=== PATIENT | male | born 1955 | race Caucasian/White ===

== ENCOUNTER 2024-02-04 18:53 | Emergency (ER) | payer MEDICARE, BC, SELFPAY ==
[2024-02-04] VITALS (11 sets, daily range): BP systolic 112–150; BP diastolic 74–83; PULSE 58–97; RESP 14–18; TEMP 36.8; O2SAT 91–98; BMI 23.1
--- NOTE | 2024-02-04 19:33 | ED.NAVMDI ---
HPI - Nausea/Vomiting/Diarrhea General Time Seen by Provider: 19:33 Date Seen: 02/04/24 Chief complaint: Nausea/Vomiting Stated complaint: Nausea, vomiting Time Seen by Provider: 02/04/24 19:32 Source: patient and RN notes reviewed Mode of arrival: ambulatory Limitations: no limitations History of Present Illness HPI Narrative: Joann is a very pleasant 68-year-old male with history of hypertension and hyperlipidemia as well as frequent heartburn on pantoprazole who comes to the emergency room with nausea vomiting and diarrhea. Patient notes that he had actually been feeling unwell 4 days ago and this lasted for 3 days. However yesterday he had complete resolution of his symptoms and was feeling quite well. Today at noon he had the onset of nausea vomiting and diarrhea all nonbloody in nature. He has not had cough cold congestion. Denies dysuria hematuria. He notes the abdominal pain appears to be in the center of his abdomen. He states that he has a lot of problems with stomach acid and he thinks that that may be part of this. He is requesting something for pain. Movement is not tented changes discomfort although he is wanting to stay still. He has not taken anything for pain at this time. Associated nausea: Yes Related Data Home Medications ?Medication ?Instructions ?Recorded ?Confirmed amlodipine 5 mg tablet 5 mg PO DAILY 02/04/24 02/04/24 atorvastatin 40 mg tablet 40 mg PO DAILY 02/04/24 02/04/24 celecoxib 200 mg capsule mg PO 02/04/24 pantoprazole 40 mg tablet,delayed 40 mg PO DAILY 02/04/24 02/04/24 release Allergies Allergy/AdvReac Type Severity Reaction Status Date / Time Penicillins Allergy Unknown Verified 02/04/24 22:25 Review of Systems Status of ROS: Reports: 10 or more systems reviewed and unremarkable except as noted in History and below Const: Denies: fever or chills Eyes: Denies: change in vision ENMT: Denies: throat pain, neck pain, nasal discharge or nasal congestion Cardio: Denies: chest pain, palpitations or shortness of breath with exertion Resp: Denies: shortness of breath or cough GI: Reports: abdominal pain, nausea, vomiting and diarrhea; Denies: blood in stool : Denies: painful urination or urinary frequency Musculo: Denies: neck pain PFSH PFSH Social History Smoking Status: Former smoker What tobacco products do you use: cigarettes Smoking quit date/years: <= 15 years ago How often do you have a drink containing alcohol: never AUDIT-C Alcohol total score: 0 Non-prescribed substance use: denies use Exam Narrative: Exam Narrative: Alert and oriented. Very stoic but in obvious discomfort. Ears eyes nose clear. Lips are dry. Heart with a regular rate and rhythm. Lungs are clear bilaterally. Abdomen shows tenderness rather diffuse but mostly in the epigastrium. No rebound tenderness noted. No lower extremity edema. Const: Vital Signs, click to edit/add: Vital Signs - 24 hr 02/04/24 18:58 02/04/24 20:50 02/04/24 21:02 Temperature 98.2 F Pulse Rate 64 65 Pulse Rate [Pulse Oximeter] 59 L Respiratory Rate 18 16 Blood Pressure Blood Pressure [Ri ght Upper Arm] 150/83 H Pulse Oximetry 98 95 Oxygen Delivery Me thod Room Air 02/04/24 21:15 02/04/24 21:30 02/04/24 21:45 Temperature Pulse Rate 63 58 L 78 Pulse Rate [Pulse Oximeter] Respiratory Rate 16 Blood Pressure Blood Pressure [Ri ght Upper Arm] Pulse Oximetry 95 91 94 Oxygen Delivery Me thod 02/04/24 22:00 02/04/24 22:15 02/04/24 22:30 Temperature Pulse Rate 65 87 96 Pulse Rate [Pulse Oximeter] Respiratory Rate 16 14 Blood Pressure 121/74 Blood Pressure [Ri ght Upper Arm] Pulse Oximetry 94 95 94 Oxygen Delivery Me thod 02/04/24 22:31 02/04/24 22:45 Temperature Pulse Rate 94 Pulse Rate [Pulse Oximeter] 97 Respiratory Rate 14 Blood Pressure Blood Pressure [Ri ght Upper Arm] 112/76 Pulse Oximetry 92 Oxygen Delivery Me thod Documenting provider has reviewed patient's vital signs: yes Course Course ED Course: Differential diagnosis includes but is not limited to gastroenteritis, bowel obstruction, gastritis, food-borne illness and COVID. At this time will place IV give 1 L of normal saline, Zofran 4 mg IV. Will check labs to include CBC, comprehensive panel, CRP, lactate, urinalysis. Plan on CT of the abdomen as well. Reevaluation(s) Reevaluation #1: White count elevated to 15,000. Patient is feeling better at this time after fluids and anti emetic. He has had resolution of his pain. I was contacted by nursing staff who states down told him that he needs to go now any does not want to wait anymore. 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 At this time he has had resolution of his symptoms. States he really must go needs a ride does not want to wait anymore and has to go to the bathroom. I have asked him to urinate through a strainer here since the symptoms have resolved. 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 I did speak with Radiology to find out if this was acute or chronic and they stated it is most likely chronic because of the calcifications but they cannot say that for sure as there are no previous CTs for comparison. I did explain this to Sumit. He does not want to wait for me to speak to the surgeon and stated I could give him a call or that he would follow up with his primary MD. Our surgeon notes that they would recommend follow-up with Yaw Teran Hepato- biliary specialist as well as vascular specialist for [facility]. He could go through patient's primary MD. Vital Signs Vital signs: Initial Vital Signs Temperature 98.2 F 02/04/24 18:58 Temperature Source Temporal Artery Scan 02/04/24 18:58 Pulse Rate 59 L 02/04/24 18:58 Respiratory Rate 18 02/04/24 18:58 Blood Pressure 150/83 H 02/04/24 18:58 Blood Pressure Mean 105 02/04/24 18:58 Blood Pressure Position Sitting 02/04/24 18:58 Pulse Oximetry 98 02/04/24 18:58 Oxygen Delivery Method Room Air 02/04/24 18:58 Vital Signs Temperature 98.2 F 02/04/24 18:58 Pulse Rate 59 L 02/04/24 18:58 Respiratory Rate 18 02/04/24 18:58 Blood Pressure 150/83 H 08/02/24 18:58 Pulse Oximetry 98 02/04/24 18:58 Oxygen Delivery Method Room Air 02/04/24 18:58 Temperature 98.2 F 02/04/24 18:58 Pulse Rate 97 02/04/24 22:45 Respiratory Rate 14 02/04/24 22:45 Blood Pressure 112/76 02/04/24 22:45 Pulse Oximetry 92 02/04/24 22:31 Oxygen Delivery Method Room Air 02/04/24 18:58 Medications Administered Medications: Discontinued Medications Generic Name Dose Route Start Last Admin Trade Name Dez PRN Reason Stop Dose Admin Sodium Chloride 1,000 mls @ 1,000 mls/hr 02/04/24 19:59 02/04/24 21:49 0.9 % Sodium Chloride 1000 Ml IV 02/04/24 20:58 Infused .Q1H MELVINA Infusion Ondansetron HCl 4 mg 02/04/24 19:58 02/04/24 20:34 Ondansetron 2 Mg/Ml Inj IVP 02/04/24 19:59 4 mg ONCE ONE Administration MDM - Nausea/Vomiting/Diarrhea MDM Narrative Medical decision making narrative: 1. Nausea vomiting diarrhea-1 L of fluid and Zofran 4 mg resolved patient's symptoms. He had no further stools here so unable to collect any stool samples. He is feeling much better at this time. 2. Right sided kidney stone. The patient does not describe any symptoms of kidney stone with flank pain or dysuria. He did have a small amount of microscopic hematuria on his urinalysis. We did have him strain his urine and this stone did not appear to pass. However, he has had significant resolution of his symptoms. He will continue to strain his urine at home. I would like him to follow up with his primary MD to ensure passing of this stone. We spoke about possibility of infection at this time urinalysis does not show that. However should he start to develop a fever chills worsening symptoms I would need him to return to the emergency room. 3. Possible aneurysm-In the kunal hepatis, there is a tubular hypodense structure measuring 4.5 x 1.5 cm with peripheral rim calcification. 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 Recommendation for follow-up with primary MD and further consultation with Dr. Yaw Teran Hepato- biliary specialist as well as vascular specialist for [facility]. Patient is called with this information. 4. Disposition-patient was very anxious to leave. He did was not willing to speak very much and to the best of my ability I told him as much information as possible. I stressed the importance of returning for worsening symptoms especially fever or chills. I did state that I did not know the significance of the possible aneurysm which appeared to be old but without previous CTs would be difficult to say for certain. In spite of this he did not want to wait and departed. Medical Records Attestation: I reviewed the patient's medical records. Lab Data Attestation: I reviewed the patient's lab results. Labs: Lab Results 02/04/24 02/04/24 02/04/24 Range/Units 19:55 19:58 21:00 WBC 15.54 H (4.50-11.00) K/uL RBC 4.94 (4.30-5.90) m/uL Hgb 15.2 (13.5-17.5) gm/dL Hct 45.6 (37.0-53.0) % MCV 92 (80-100) fL MCH 31 (26-34) pg MCHC 33 (32-36) gm/dL RDW Coeff of Annalisa 12.4 (11.5-15.5) % Plt Count 306 (140-440) K/uL Neut % (Auto) 84.9 H (42.0-72.0) % Lymph % (Auto) 8.9 L (20-44) % [place] % (Auto) 4.7 (0.0-11.0) % Eos % (Auto) 0.5 (0.0-7.0) % Baso % (Auto) 0.7 (0.0-3.0) % Neut # (Auto) 13.20 H (1.7-7.0) K/uL Lymph # (Auto) 1.40 (0.90-2.90) K/uL [place] # (Auto) 0.70 (0.00-0.90) K/UL Eos # (Auto) 0.10 (0.00-0.50) K/uL Baso # (Auto) 0.10 (0.00-0.30) K/uL Abs Immat Gran (auto) 0.00 (0.00-0.30) K/uL Imm/Tot Granulo (auto) 0.3 % Sodium 140 (135-149) mmol/L Potassium 3.4 L (3.6-5.1) mmol/L Chloride 106 (96-114) mmol/L Carbon Dioxide 27 (20-32) mmol/L Anion Gap 7 (7-15) mEq/L BUN 13 (7-30) mg/dL Creatinine 1.1 (0.5-1.5) mg/dL Estimated Creat Clear 70.16 Estimated GFR 72 ml/min Glucose 142 H (60-115) mg/dL Lactate 2.1 H (0.5-1.9) mmol/L Calcium 9.7 (8.4-10.6) mg/dL Total Bilirubin 0.9 (0.1-1.5) mg/dL AST 24 (12-35) U/L ALT 20 (4-50) U/L Alkaline Phosphatase 74 (40-150) U/L C-Reactive Protein < 0.5 L (0.5-1.0) mg/dL Total Protein 7.7 (6.0-8.3) g/dL Albumin 4.6 (3.3-5.0) g/dL Urine Color Yellow (Yellow) Urine Appearance Clear (Clear) Urine pH 7.5 (5.0-8.5) Ur Specific [place] 1.020 (1.000-1.030) Urine Protein Negative (Negative) Urine Glucose (UA) Negative (Negative) Urine Ketones Trace A (Negative) Urine Blood 2+ A (Negative) Urine Nitrite Negative (Negative) Urine Bilirubin Negative (Negative) Urine Urobilinogen 0.2 (0.2-1.0) Ur Leukocyte Esterase Negative (Negative) Urine RBC 2-5 A (0-2) Urine WBC 2-5 (0-5) Ur Squamous Epith Cells Few (None-Few) Urine Bacteria Few A (None) Imaging Data CT scan - abdomen: Attestation: I have reviewed the pertinent imaging results. Radiologist's impression: ower chest: Unremarkable. Liver: Unremarkable. Spleen: Unremarkable. Pancreas: Unremarkable. Gallbladder: Unremarkable. Kidney: There is an 8 mm stone present in the distal right ureter causing mild right hydroureter, renal pelviectasis and trace perinephric edema. Bilateral renal cysts are present, measuring up to 3.2 cm. Adrenal: Unremarkable. Bowel: Severe diverticulosis of the distal descending and sigmoid colon noted. The appendix is not identified. Vascular: In the kunal hepatis, there is a tubular hypodense structure measuring 4.5 x 1.5 cm with peripheral rim calcification. Lymph: Unremarkable. Peritoneum: Unremarkable. No pneumoperitoneum is seen. No significant ascites is noted. Pelvis: Mild prostatic enlargement is noted with coarse central calcifications seen. Soft tissue: Unremarkable. 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 Remote right-sided rib fractures are present. IMPRESSIONS: 1. There is an 8 mm stone present in the distal right ureter causing mild right hydroureter, renal pelviectasis and trace perinephric edema. 2. In the kunal hepatis, there is a tubular hypodense structure measuring 4.5 x 1.5 cm with peripheral rim calcification. 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 Discharge Plan Discharge Clinical Impression: Kidney stone, Nausea vomiting and diarrhea Patient Disposition: Home, Self-Care Condition: Improved Instructions: Kidney Stones (ED) Additional Instructions: Return to the emergency room for increasing pain, fever, vomiting and as needed. Follow-up with Dr. Stephens for recheck to ensure that your kidney stone has passed. Please strain your urine. If you to see this stone than it should have past. Prescriptions: No Action celecoxib 200 mg capsule PO atorvastatin 40 mg tablet 40 mg PO DAILY amlodipine 5 mg tablet 5 mg PO DAILY pantoprazole 40 mg tablet,delayed release (DR/EC) 40 mg PO DAILY Follow Up/Referrals: William Stephens MD [Primary Care Provider] - Stand Alone Forms: [employer] Info Instructions
--- NOTE | 2024-02-04 19:58 | CRLHL7_ITS ---
For Patients: As a result of the Century Cures Act, medical imaging exams and procedure reports are released immediately into your electronic medical record. You may view this report before your referring provider. If you have questions, please contact your health care provider. INDICATION: Abdominal pain with nausea, vomiting, diarrhea TECHNIQUE: CT Abdomen and pelvis with i.v. contrast. Coronal and sagittal reformats were obtained. CONTRAST: 85 mL Isovue 370 COMPARISON: 07/28/2021 FINDINGS: Lower chest: Unremarkable. Liver: Unremarkable. Spleen: Unremarkable. Pancreas: Unremarkable. Gallbladder: Unremarkable. Kidney: There is an 8 mm stone present in the distal right ureter causing mild right hydroureter, renal pelviectasis and trace perinephric edema. Bilateral renal cysts are present, measuring up to 3.2 cm. Adrenal: Unremarkable. Bowel: Severe diverticulosis of the distal descending and sigmoid colon noted. The appendix is not identified. Vascular: In the kunal hepatis, there is a tubular hypodense structure measuring 4.5 x 1.5 cm with peripheral rim calcification. Lymph: Unremarkable. Peritoneum: Unremarkable. No pneumoperitoneum is seen. No significant ascites is noted. Pelvis: Mild prostatic enlargement is noted with coarse central calcifications seen. Soft tissue: Unremarkable. 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 Remote right-sided rib fractures are present. IMPRESSIONS: 1. There is an 8 mm stone present in the distal right ureter causing mild right hydroureter, renal pelviectasis and trace perinephric edema. 2. In the kunal hepatis, there is a tubular hypodense structure measuring 4.5 x 1.5 cm with peripheral rim calcification. 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 Dictated by Kuldeep Fernandez MD @ 02/04/2024 10:03:44 PM Please note that all CT scans at this facility use dose modulation, iterative reconstruction, and/or weight-based dosing when appropriate to reduce radiation dose to as low as reasonably achievable. Dictated by: Kuldeep Fernandez MD @ 02/04/2024 22:05:43 (Electronically Signed)
[2024-02-04 20:05] LABS: Lactate* 2.1 mmol/L (0.5-1.9)
[2024-02-04 20:09] LABS: Basophils Percent Auto 0.7 % (0.0-3.0); Eosinophils Percent Auto 0.5 % (0.0-7.0); Hematocrit 45.6 % (37.0-53.0); Hemoglobin* 15.2 gm/dL (13.5-17.5); Immature Granulocytes Pct Auto 0.3 %; Lymphocytes Percent Auto 8.9 % (20-44); Mean Corpuscular HGB Conc 33 gm/dL (32-36); Mean Corpuscular Hemoglobin 31 pg (26-34); Mean Corpuscular Volume 92 fL (80-100); Monocytes Percent Auto 4.7 % (0.0-11.0); Neutrophils Percent Auto 84.9 % (42.0-72.0); Platelet Count* 306 K/uL (140-440); RDW Coefficient of Variation % 12.4 % (11.5-15.5); Red Blood Count 4.94 m/uL (4.30-5.90); White Blood Count* 15.54 K/uL (4.50-11.00)
[2024-02-04 20:10] LABS: Albumin* 4.6 g/dL (3.3-5.0); Chloride* 106 mmol/L (96-114); Sodium* 140 mmol/L (135-149)
[2024-02-04 20:11] LABS: Potassium* 3.4 mmol/L (3.6-5.1)
[2024-02-04 20:13] LABS: Creatinine* 1.1 mg/dL (0.5-1.5); Est. Creatinine Clearance* 70.16; Estimated Glomerular Filt Rate 72 ml/min
[2024-02-04 20:14] LABS: Alanine Aminotransferase* 20 U/L (4-50); Alkaline Phosphatase* 74 U/L (40-150); Anion Gap 7 mEq/L (7-15); Aspartate Amino Transferase* 24 U/L (12-35); Bilirubin Total* 0.9 mg/dL (0.1-1.5); Blood Urea Nitrogen* 13 mg/dL (7-30); Calcium* 9.7 mg/dL (8.4-10.6); Carbon Dioxide* 27 mmol/L (20-32); Glucose* 142 mg/dL (60-115); Total Protein* 7.7 g/dL (6.0-8.3)
[2024-02-04 20:26] LABS: C Reactive Protein* < 0.5 mg/dL (0.5-1.0)
[2024-02-04 20:27] LABS: Slide Review Reflex No
[2024-02-04] MEDS: ONDANSETRON 2 MG/ML inj 4 MG IVP (20:34)
[2024-02-04 21:10] LABS: Appearance Urine Clear (Clear); Bilirubin Urine Negative (Negative); Blood Urine 2+ (Negative); Color Urine Yellow (Yellow); Glucose Urine Negative (Negative); Ketones Urine Trace (Negative); Leukocyte Esterase Urine Negative (Negative); Nitrite Urine Negative (Negative); Protein Urine Negative (Negative); Urobilinogen Urine 0.2 (0.2-1.0); pH Urine 7.5 (5.0-8.5)
[2024-02-04] MEDS: 0.9 % SODIUM CHLORIDE 1000 ml 1,000 ML IV (21:24)
[2024-02-04 21:28] LABS: Bacteria Urine Few; Squamous Epithelial Cell Urine Few (None-Few)
== END 2024-02-04 22:47 | disposition home or self-care (01) ==
PROVIDERS: Emergency Provider Family Medicine; PCP Family Medicine
DX: N20.0 Calculus of kidney (principal); R11.2 Nausea with vomiting, unspecified; R19.7 Diarrhea, unspecified
CPT/HCPCS: 36415; 74177; 80053; 81001; 83605; 85025; 86140; 87045; 87046; 87086; 87427; 87493; 96374; 99284; 99285; J2405; J7030; Q9967

== ENCOUNTER 2024-02-05 16:03 | Emergency (ER) | payer MEDICARE, BC, SELFPAY ==
[2024-02-05 16:09] VITALS: BP 162/84; PULSE 59; RESP 18; TEMP 37.1; O2SAT 97; BMI 23.1
--- NOTE | 2024-02-05 16:49 | ED.ABDPAIN ---
HPI - Abdominal Pain General Date Seen: 02/05/24 Chief Complaint: Abdominal Pain Stated Complaint: vomiting, abdominal pain, kidney stones Time Seen by Provider: 02/05/24 16:08 Source: patient Mode of arrival: ambulatory Limitations: no limitations History of Present Illness HPI narrative: Patient is a 68-year-old gentleman who presents ambulatory to the emergency room Related Data Home Medications ?Medication ?Instructions ?Recorded ?Confirmed amlodipine 5 mg tablet 5 mg PO DAILY 02/04/24 02/05/24 atorvastatin 40 mg tablet 40 mg PO DAILY 02/04/24 02/05/24 celecoxib 200 mg capsule mg PO 02/04/24 pantoprazole 40 mg tablet,delayed 40 mg PO DAILY 02/04/24 02/05/24 release Previous Rx's ?Medication ?Instructions ?Recorded ondansetron 4 mg disintegrating 4 mg PO Q8H PRN nausea and 02/05/24 tablet vomiting #14 tabs oxycodone-acetaminophen 5 mg-325 1 tab PO TID PRN pain #14 tabs 02/05/24 mg tablet (Percocet) Allergies Allergy/AdvReac Type Severity Reaction Status Date / Time Penicillins Allergy Unknown Verified 02/05/24 16:08 [facility] Social History (Updated 02/04/24 @ 22:55 by Maryan Webb MD) Smoking Status: Former smoker What tobacco products do you use: cigarettes Smoking quit date/years: <= 15 years ago How often do you have a drink containing alcohol: never AUDIT-C Alcohol total score: 0 Non-prescribed substance use: marijuana (any form) Exam Const: Vital Signs, click to edit/add: Vital Signs - 24 hr 02/05/24 16:09 Temperature 98.8 F Pulse Rate [Pulse Oximeter] 59 L Respiratory Rate 18 Blood Pressure [Ri ght Upper Arm] 162/84 H Pulse Oximetry 97 Oxygen Delivery Me thod Room Air Course Course ED Course: Patient became pain-free, I reviewed his labs from yesterday his white count is improved, his CT scan showed a large calculus at the right ureterovesical junction, with hydronephrosis, he also has hep attic aneurysm, 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 His pain does not fit that description today. Vital Signs Vital signs: Initial Vital Signs Temperature 98.8 F 02/05/24 16:09 Temperature Source Temporal Artery Scan 02/05/24 16:09 Pulse Rate 59 L 02/05/24 16:09 Respiratory Rate 18 02/05/24 16:09 Blood Pressure 162/84 H 02/05/24 16:09 Blood Pressure Mean 110 H 02/05/24 16:09 Blood Pressure Position Sitting 02/05/24 16:09 Pulse Oximetry 97 02/05/24 16:09 Oxygen Delivery Method Room Air 02/05/24 16:09 Vital Signs Temperature 98.8 F 02/05/24 16:09 Pulse Rate 59 L 02/05/24 16:09 Respiratory Rate 18 02/05/24 16:09 Blood Pressure 162/84 H 02/05/24 16:09 Pulse Oximetry 97 02/05/24 16:09 Oxygen Delivery Method Room Air 02/05/24 16:09 Temperature 98.8 F 02/05/24 16:09 Pulse Rate 59 L 02/05/24 16:09 Respiratory Rate 18 02/05/24 16:09 Blood Pressure 162/84 H 02/05/24 16:09 Pulse Oximetry 97 02/05/24 16:09 Oxygen Delivery Method Room Air 02/05/24 16:09 Medications Administered Medications: Discontinued Medications Generic Name Dose Route Start Last Admin Trade Name Freq PRN Reason Stop Dose Admin Sodium Chloride 1,000 mls @ 1,000 mls/hr 02/05/24 16:45 02/05/24 16:57 0.9 % Sodium Chloride 1000 Ml IV 02/05/24 17:44 1,000 mls/hr .Q1H MELVINA Administration Ketorolac Tromethamine 15 mg 02/05/24 16:34 02/05/24 16:57 Ketorolac 15 Mg/Ml Inj IVP 02/05/24 16:35 15 mg ONCE ONE Administration Ondansetron HCl 4 mg 02/05/24 16:34 02/05/24 16:57 Ondansetron 2 Mg/Ml Inj IVP 02/05/24 16:35 4 mg ONCE ONE Administration MDM - Abdominal Pain MDM Narrative Medical decision making narrative: I reviewed with the patient, his pain is gone away entirely. He is having no pain on examination either is upper quadrant or lower down. Yesterday he received only Zofran and fluids, today to give a little bit of a Toradol. Given his past history of GI bleeds, I do not think it would be in his best interest to use the NSAIDs. I will give a prescription for of Percocets, but he did not want a prescription of instymeds meds and realize that the pharmacies are all closed at the present time. He will follow-up with his primary care physician this week, I did also give him a prescription for nausea medicine. He will return if increasing abdominal pain nausea vomiting fevers chills or sweats. All of his labs look reasonable here today. I did not repeat his imaging, his is recovery was excellent, and he was having no pain Differential Diagnosis Differential diagnosis: Likely abdominal pain, acute appendicitis, calculus of kidney, constipation, diverticulitis, gastroenteritis, pancreatitis and small bowel obstruction Medical Records Attestation: I reviewed the patient's medical records. Lab Data Attestation: I reviewed the patient's lab results. Labs: Lab Results 02/05/24 02/05/24 Range/Units 16:45 16:50 WBC 10.94 (4.50-11.00) K/uL RBC 4.65 (4.30-5.90) m/uL Hgb 14.2 (13.5-17.5) gm/dL Hct 43.3 (37.0-53.0) % MCV 93 (80-100) fL MCH 31 (26-34) pg MCHC 33 (32-36) gm/dL RDW Coeff of Annalisa 12.6 (11.5-15.5) % Plt Count 297 (140-440) K/uL Neut % (Auto) 62.7 (42.0-72.0) % Lymph % (Auto) 23.6 (20-44) % [place] % (Auto) 11.2 H (0.0-11.0) % Eos % (Auto) 1.6 (0.0-7.0) % Baso % (Auto) 0.7 (0.0-3.0) % Neut # (Auto) 6.86 (1.7-7.0) K/uL Lymph # (Auto) 2.58 (0.90-2.90) K/uL [place] # (Auto) 1.20 H (0.00-0.90) K/UL Eos # (Auto) 0.18 (0.00-0.50) K/uL Baso # (Auto) 0.08 (0.00-0.30) K/uL Abs Immat Gran (auto) 0.02 (0.00-0.30) K/uL Imm/Tot Granulo (auto) 0.2 % Sodium 140 (135-149) mmol/L Potassium 3.7 (3.6-5.1) mmol/L Chloride 106 (96-114) mmol/L Carbon Dioxide 27 (20-32) mmol/L Anion Gap 7 (7-15) mEq/L BUN 14 (7-30) mg/dL Creatinine 1.1 (0.5-1.5) mg/dL Estimated Creat Clear 70.16 Estimated GFR 72 ml/min Glucose 116 H (60-115) mg/dL Lactate 0.9 (0.5-1.9) mmol/L Calcium 10.0 (8.4-10.6) mg/dL Total Bilirubin 0.7 (0.1-1.5) mg/dL Direct Bilirubin 0.3 (0.0-0.5) mg/dL AST 29 (12-35) U/L ALT 19 (4-50) U/L Alkaline Phosphatase 62 (40-150) U/L C-Reactive Protein 0.6 (0.5-1.0) mg/dL Total Protein 7.1 (6.0-8.3) g/dL Albumin 4.3 (3.3-5.0) g/dL Lipase 55 (23-300) U/L Urine Color Yellow (Yellow) Urine Appearance Clear (Clear) Urine pH 6.0 (5.0-8.5) Ur Specific [place] 1.020 (1.000-1.030) Urine Protein Negative (Negative) Urine Glucose (UA) Negative (Negative) Urine Ketones Negative (Negative) Urine Blood 2+ A (Negative) Urine Nitrite Negative (Negative) Urine Bilirubin Negative (Negative) Urine Urobilinogen 0.2 (0.2-1.0) Ur Leukocyte Esterase Negative (Negative) Urine RBC 2-5 A (0-2) Urine WBC 0-2 (0-5) Ur Squamous Epith Cells None (None-Few) Urine Bacteria None (None) Discharge Plan Discharge Clinical Impression: Abdominal pain, Urolithiasis, Aneurysm artery, hepatic Patient Disposition: Home, Self-Care Condition: Stable Instructions: Renal Colic (ED), Abdominal Pain (ED) Additional Instructions: As you wish we will call in a prescription to [facility], and he can pick that up tomorrow. For increasing abdominal pain, nausea, and vomiting you should come back to the ER. Follow-up with Dr. Stephens this week, ask about a referral to vascular surgery as we discussed. No use of ibuprofen, Aleve, due to your history of vomiting up blood. Activity Level: Light activity Prescriptions: New oxycodone-acetaminophen [Percocet] 5-325 mg tablet 1 tab PO TID PRN (Reason: pain) Qty: 14 0RF ondansetron 4 mg tablet,disintegrating 4 mg PO Q8H PRN (Reason: nausea and vomiting) Qty: 14 0RF No Action celecoxib 200 mg capsule PO atorvastatin 40 mg tablet 40 mg PO DAILY amlodipine 5 mg tablet 5 mg PO DAILY pantoprazole 40 mg tablet,delayed release (DR/EC) 40 mg PO DAILY Follow Up/Referrals: William Stephens MD [Primary Care Provider] - Stand Alone Forms: [employer] Travel Info Instructions
[2024-02-05 16:50] LABS: Appearance Urine Clear (Clear); Bilirubin Urine Negative (Negative); Blood Urine 2+ (Negative); Color Urine Yellow (Yellow); Glucose Urine Negative (Negative); Ketones Urine Negative (Negative); Leukocyte Esterase Urine Negative (Negative); Nitrite Urine Negative (Negative); Protein Urine Negative (Negative); Urobilinogen Urine 0.2 (0.2-1.0)
[2024-02-05 16:56] LABS: Lactate* 0.9 mmol/L (0.5-1.9)
[2024-02-05 16:57] LABS: Basophils Absolute Auto 0.08 K/uL (0.00-0.30); Basophils Percent Auto 0.7 % (0.0-3.0); Eosinophils Absolute Auto 0.18 K/uL (0.00-0.50); Eosinophils Percent Auto 1.6 % (0.0-7.0); Hematocrit 43.3 % (37.0-53.0); Hemoglobin* 14.2 gm/dL (13.5-17.5); Immature Granulocytes Abs Auto 0.02 K/uL (0.00-0.30); Immature Granulocytes Pct Auto 0.2 %; Lymphocytes Absolute Auto 2.58 K/uL (0.90-2.90); Lymphocytes Percent Auto 23.6 % (20-44); Mean Corpuscular HGB Conc 33 gm/dL (32-36); Mean Corpuscular Hemoglobin 31 pg (26-34); Mean Corpuscular Volume 93 fL (80-100); Monocytes Percent Auto 11.2 % (0.0-11.0); Neutrophils Absolute Auto 6.86 K/uL (1.7-7.0); Neutrophils Percent Auto 62.7 % (42.0-72.0); Platelet Count* 297 K/uL (140-440); RDW Coefficient of Variation % 12.6 % (11.5-15.5); Red Blood Count 4.65 m/uL (4.30-5.90); White Blood Count* 10.94 K/uL (4.50-11.00)
[2024-02-05] MEDS: 0.9 % SODIUM CHLORIDE 1000 ml 1,000 ML IV (16:57)
[2024-02-05] MEDS: ONDANSETRON 2 MG/ML inj 4 MG IVP (16:57)
[2024-02-05] MEDS: KETOROLAC 15 MG/ML inj IVP (16:57)
[2024-02-05 16:58] LABS: Slide Review Reflex No
[2024-02-05 17:01] LABS: WBC Urine 0-2 (0-5)
[2024-02-05 17:09] VITALS: PULSE 61; O2SAT 94
[2024-02-05 17:11] LABS: Albumin* 4.3 g/dL (3.3-5.0)
[2024-02-05 17:12] LABS: Chloride* 106 mmol/L (96-114); Potassium* 3.7 mmol/L (3.6-5.1); Sodium* 140 mmol/L (135-149)
[2024-02-05 17:14] LABS: Alkaline Phosphatase* 62 U/L (40-150); Aspartate Amino Transferase* 29 U/L (12-35); Bilirubin Direct* 0.3 mg/dL (0.0-0.5); Bilirubin Total* 0.7 mg/dL (0.1-1.5); Total Protein* 7.1 g/dL (6.0-8.3)
[2024-02-05 17:15] VITALS: PULSE 69; O2SAT 95
[2024-02-05 17:15] LABS: Alanine Aminotransferase* 19 U/L (4-50); Anion Gap 7 mEq/L (7-15); Carbon Dioxide* 27 mmol/L (20-32); Creatinine* 1.1 mg/dL (0.5-1.5); Est. Creatinine Clearance* 70.16; Estimated Glomerular Filt Rate 72 ml/min; Lipase* 55 U/L (23-300)
[2024-02-05 17:16] LABS: Blood Urea Nitrogen* 14 mg/dL (7-30); Glucose* 116 mg/dL (60-115)
[2024-02-05 17:21] LABS: C Reactive Protein* 0.6 mg/dL (0.5-1.0)
[2024-02-05 17:30] VITALS: PULSE 73; O2SAT 96
[2024-02-05 17:32] VITALS: BP 128/74; PULSE 80; RESP 16; O2SAT 94
[2024-02-05 17:45] VITALS: PULSE 77; O2SAT 98
== END 2024-02-05 18:07 | disposition home or self-care (01) ==
PROVIDERS: Emergency Provider Family Medicine; PCP Family Medicine
DX: I72.8 Aneurysm of other specified arteries (principal); N20.2 Calculus of kidney with calculus of ureter
CPT/HCPCS: 36415; 80048; 80076; 81001; 83605; 83690; 85025; 86140; 96374; 96375; 99284; J1885; J2405; J7030

== ENCOUNTER 2024-02-19 16:55 | Emergency (ER) | payer MEDICARE, BC, SELFPAY ==
[2024-02-19 17:02] VITALS: BP 153/95; PULSE 78; RESP 18; TEMP 36.5; O2SAT 96; BMI 22.5
--- NOTE | 2024-02-19 17:28 | ED.GENADULT ---
HPI - General Adult General Chief complaint: Abdominal Pain Stated complaint: Kidneystone(s), nausea, vomiting Time Seen by Provider: 02/19/24 16:59 Source: patient Mode of arrival: ambulatory Limitations: no limitations History of Present Illness HPI narrative: 68-year-old male presents the emergency department with epigastric area pain. He has notable history of an 8 mm distal ureteral stone diagnosed 2 weeks ago. These notes are extensively reviewed as were the imaging and lab studies. 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 Patient was advised to follow-up with his primary care team. Reports that he did so and he was feeling so much better that they elected not refer to urology as it seemed like he had passed his stone. He reports that he was given anti nausea medicine and did take a couple of those today but is still feeling nauseated with epigastric discomfort. There has been no vomiting. No fever, no trauma or injury. Pain increases with eating and drinking. He does have a history of what sounds like prior upper GI bleed and stomach ulcers from NSAIDs, therefore he does not take NSAIDs any longer. Denies any alcohol use. He reports that the epigastric pain is been bothersome just for today but he does have intermittent problems with this. He states that when he was in the ED 2 weeks ago he was given some IV medicine and felt better. He would like this again. I reviewed the records and see that he was given Zofran Toradol and IV fluid. He was discharged with Zofran. He feels nauseated today. He did try taking 2 of the Zofran with no significant improvement in his symptoms. We discuss his urinary symptoms, he is not having any dysuria or hematuria. He did have a loose stool this morning. He is adamant that he would not want another CT scan, just wants the same IV medicine to feel better. He is not requesting narcotics. I spent some time probing what his rationale is for not repeating the CT scan. 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 It sounds as though he is quite claustrophobic. We discussed this and I offer a sedative to repeat the CT. He adamantly declines repeat CT stating that he does not feel like things are bad enough for that but would definitely come back if his symptoms worsen. We go around on this about 4 times with no change in stance from either of us. Denies prior history of abdominal surgery. Long-term medical complications or hypertension. His only home medications are amlodipine and a tore the statin. Nonsmoker, no longer drinking any alcohol. ROS is notable for the GI symptoms as above also reports feeling ?sick? but he can not really clarify this more for me. He denies chills, fever, myalgias, body aches, dizziness, weakness, fatigue. I try for more clarification and I am not able to further clarify his symptoms. Related Data Home Medications ?Medication ?Instructions ?Recorded ?Confirmed amlodipine 5 mg tablet 5 mg PO DAILY 02/04/24 02/05/24 atorvastatin 40 mg tablet 40 mg PO DAILY 02/04/24 02/05/24 celecoxib 200 mg capsule mg PO 02/04/24 pantoprazole 40 mg tablet,delayed 40 mg PO DAILY 02/04/24 02/05/24 release Previous Rx's ?Medication ?Instructions ?Recorded ondansetron 4 mg disintegrating 4 mg PO Q8H PRN nausea and 02/05/24 tablet vomiting #14 tabs oxycodone-acetaminophen 5 mg-325 1 tab PO TID PRN pain #14 tabs 02/05/24 mg tablet (Percocet) Allergies Allergy/AdvReac Type Severity Reaction Status Date / Time Penicillins Allergy Unknown Verified 02/05/24 16:08 [facility] Social History Smoking Status: Former smoker What tobacco products do you use: cigarettes Smoking quit date/years: <= 15 years ago How often do you have a drink containing alcohol: never AUDIT-C Alcohol total score: 0 Non-prescribed substance use: marijuana (any form) Exam Const: Vital Signs, click to edit/add: Vital Signs - 24 hr 02/19/24 17:02 Temperature 97.7 F Pulse Rate [Pulse Oximeter] 78 Respiratory Rate 18 Blood Pressure [Ri ght Upper Arm] 153/95 H Pulse Oximetry 96 Oxygen Delivery Me thod Room Air Documenting provider has reviewed patient's vital signs: yes Common normals: no apparent distress General appearance: cooperative and comfortable HENMT: Head and scalp: normal to inspection Face and sinus: normal facial exam Mouth: oral and palatal mucosa normal Eye: Common normals: conjunctivae normal General eye: normal appearance of both eyes Conjunctiva: conjunctiva(e) normal Neck & C-Spine: Common normals: no lymphadenopathy Resp: Common normals: normal respiratory effort, no use of accessory muscles and clear to auscultation bilaterally Effort & inspection: able to speak in complete sentences Auscultation: clear to auscultation bilaterally Cardio: Common normals: regular rate, regular rhythm, S1 normal heart sound, S2 normal heart sound and no murmurs Rate: regular rate Rhythm: regular rhythm Heart sounds: S1 normal and S2 normal GI: Common normals: Normal to inspection, nondistended, normoactive bowel sounds present Other: Surgical scar in the left upper quadrant. Reports that this was removal of a skin lesion and it does seem consistent with that. Bowel sounds do sound normoactive in all 4 quadrants the epigastrium does not seem distended. There is mild tenderness to palpation of the epigastrium only but no rebound tenderness or guarding. The lower abdomen is nontender. No CVA tenderness. No obvious masses. Liver and spleen are not enlarged. : Common normals: no CVA tenderness Bladder/kidney exam: no CVA tenderness Back & Pelvis: Common normals: no CVA tenderness Extremity: Common normals: normal to inspection, normal capillary refill and no pedal edema Neuro: Speech: speech normal Motor exam: no tremor noted and no movement abnormalities noted Psych: Appearance: grossly normal Attitude: engaged Insight: fair Judgement: fair Skin: Common normals: no rashes or lesions noted General skin exam: no rashes or lesions noted Course Course ED Course: 68-year-old male with epigastric pain in the setting of recent large kidney stone and thrombosed hepatic aneurysm. Adamantly denying CT scan but was agreeable to some blood work. I do think there is value in checking liver enzymes, repeat urinalysis, kidney function, electrolytes. Will repeat the IV medications previously given which is Toradol Zofran and IV fluid. Again, I do think that a CT scan would be necessary to further evaluate these problems, but he is unwilling today. Will at least get a plain film x-ray as this may show stone or obstruction. Await findings. Reevaluation(s) Time of Reevaluation #1: 18:34 Reevaluation #1: Inform patient of lab results and x-ray findings. Stone does appear to still be present at right UVJ. Patient is feeling quite a bit better after IV fluid, Toradol and Zofran. He would like to go home. I counseled patient that I have significant concerns regarding his rise in creatinine. I recommended we consult Urology to figure out what the next steps in the plan are. I think he is going to have significant difficulty managing this outpatient. Patient states that he plans to leave prior to me being able to answer this question. I am still going to call Urology and see if we can find a solution. He does not meet any criteria told that if he chooses to leave against medical advice that is his right. Time of Reevaluation #2: 19:35 Reevaluation #2: I did speak with Urology, Dr. Echeverria and he does of course recommend surgical intervention. I spoke with the hospitalist and he was agreeable to admission. There is an 8 hour bed delay. Patient is finishing his IV fluids. The nurse came over to let me know that she clearly explained to him as I had done as well that he needs surgical management, he is at risk of losing a kidney, can have a complicating infection and or other significant complications from this. He adamantly declines transfer now at this time and has chosen to leave against medical advice and has called a ride to pick him up. It was made incredibly clear to him that this is a poor choice. Vital Signs Vital signs: Initial Vital Signs Temperature 97.7 F 02/19/24 17:02 Temperature Source Temporal Artery Scan 02/19/24 17:02 Pulse Rate 78 02/19/24 17:02 Pulse Rhythm Regular 02/19/24 17:02 Respiratory Rate 18 02/19/24 17:02 Blood Pressure 153/95 H 02/19/24 17:02 Blood Pressure Mean 114 H 02/19/24 17:02 Blood Pressure Position Supine 02/19/24 17:02 Pulse Oximetry 96 02/19/24 17:02 Oxygen Delivery Method Room Air 02/19/24 17:02 Vital Signs Temperature 97.7 F 02/19/24 17:02 Pulse Rate 78 02/19/24 17:02 Respiratory Rate 18 02/19/24 17:02 Blood Pressure 153/95 H 02/19/24 17:02 Pulse Oximetry 96 02/19/24 17:02 Oxygen Delivery Method Room Air 02/19/24 17:02 Temperature 97.7 F 02/19/24 17:02 Pulse Rate 78 02/19/24 17:02 Respiratory Rate 18 02/19/24 17:02 Blood Pressure 153/95 H 02/19/24 17:02 Pulse Oximetry 96 02/19/24 17:02 Oxygen Delivery Method Room Air 02/19/24 17:02 Medications Administered Medications: Discontinued Medications Generic Name Dose Route Start Last Admin Trade Name Dez PRN Reason Stop Dose Admin Sodium Chloride 1,000 mls @ 1,000 mls/hr 02/19/24 17:26 02/19/24 19:28 0.9 % Sodium Chloride 1000 Ml IV 02/19/24 18:25 Infused .Q1H MELVINA Infusion Ketorolac Tromethamine 15 mg 02/19/24 17:26 02/19/24 18:00 Ketorolac 15 Mg/Ml Inj IVP 02/19/24 17:27 15 mg ONCE ONE Administration Ondansetron HCl 4 mg 02/19/24 17:26 02/19/24 18:00 Ondansetron 2 Mg/Ml Inj IVP 02/19/24 17:27 4 mg ONCE ONE Administration Pantoprazole Sodium 40 mg 02/19/24 17:26 02/19/24 18:00 Pantoprazole Sodium 40 Mg Inj IVP 02/19/24 17:27 40 mg ONCE ONE Administration Medical Decision Making Lab Data Lab results reviewed: Yes I reviewed the patient's lab results Lab results narrative: Patient now has a mild leukocytosis with a slight left shift. Creatinine has increased from 1-1.6. This does reflect a significant change. Liver enzymes look stable. Urinalysis showing 2+ blood but no overwhelming signs of urine infection. Labs: Lab Results 02/19/24 02/19/24 Range/Units 17:35 17:40 WBC 13.78 H (4.50-11.00) K/uL RBC 5.10 (4.30-5.90) m/uL Hgb 15.6 (13.5-17.5) gm/dL Hct 47.5 (37.0-53.0) % MCV 93 (80-100) fL MCH 31 (26-34) pg MCHC 33 (32-36) gm/dL RDW Coeff of Annalisa 12.4 (11.5-15.5) % Plt Count 303 (140-440) K/uL Neut % (Auto) 76.2 H (42.0-72.0) % Lymph % (Auto) 13.4 L (20-44) % Bryan % (Auto) 8.1 (0.0-11.0) % Eos % (Auto) 1.3 (0.0-7.0) % Baso % (Auto) 0.8 (0.0-3.0) % Neut # (Auto) 10.50 H (1.7-7.0) K/uL Lymph # (Auto) 1.80 (0.90-2.90) K/uL Bryan # (Auto) 1.10 H (0.00-0.90) K/UL Eos # (Auto) 0.20 (0.00-0.50) K/uL Baso # (Auto) 0.10 (0.00-0.30) K/uL Abs Immat Gran (auto) 0.00 (0.00-0.30) K/uL Imm/Tot Granulo (auto) 0.2 % Sodium 140 (135-149) mmol/L Potassium 4.1 (3.6-5.1) mmol/L Chloride 104 (96-114) mmol/L Carbon Dioxide 31 (20-32) mmol/L Anion Gap 5 L (7-15) mEq/L BUN 14 (7-30) mg/dL Creatinine 1.6 H (0.5-1.5) mg/dL Estimated Creat Clear 48.23 Estimated GFR 46 ml/min Glucose 121 H (60-115) mg/dL Calcium 9.6 (8.4-10.6) mg/dL Total Bilirubin 0.7 (0.1-1.5) mg/dL AST 34 (12-35) U/L ALT 28 (4-50) U/L Alkaline Phosphatase 66 (40-150) U/L C-Reactive Protein 0.5 (0.5-1.0) mg/dL Total Protein 7.9 (6.0-8.3) g/dL Albumin 4.7 (3.3-5.0) g/dL Lipase 46 (23-300) U/L Urine Color Yellow (Yellow) Urine Appearance Clear (Clear) Urine pH 7.0 (5.0-8.5) Ur Specific [place] 1.020 (1.000-1.030) Urine Protein Negative (Negative) Urine Glucose (UA) Negative (Negative) Urine Ketones Negative (Negative) Urine Blood 2+ A (Negative) Urine Nitrite Negative (Negative) Urine Bilirubin Negative (Negative) Urine Urobilinogen 0.2 (0.2-1.0) Ur Leukocyte Esterase Negative (Negative) Urine RBC 25-50 A (0-2) Urine WBC 0-2 (0-5) Ur Squamous Epith Cells None (None-Few) Urine Bacteria None (None) Imaging Data Abdominal x-ray: Attestation: I have reviewed the pertinent imaging results. My impression: Multiple pelvic calcifications but in comparison to his previous CT that 8 mm stone is still at the right UVJ area. I can not distinguish it from the other calcifications due to its size, anatomical location and shape. No obstruction or free air Radiologist's impression: Findings/impression : No evidence of bowel obstruction or inflammation. No free air. There is an 8 millimeter calcification projecting over the right lower pelvis, which may represent the stone in the distal ureter seen on prior CT examination. Additionally, there are several calcifications projecting over the pelvis to include a calcified peritoneal loose body, multiple pelvic phleboliths, and prostate calcifications as seen on prior CT examination. The visualized thorax is unremarkable. No acute osseous abnormality. Dictated by Eyal Rosas MD @ 02/19/2024 6:12:29 PM Discharge Plan Discharge Clinical Impression: Acute renal failure due to urinary obstruction, Right distal ureteral calculus Patient Disposition: Left Against Medical Advice Additional Instructions: Extensive time was spent arranging transfer to [facility] and patient ultimately declined transfer against my recommendation and that of the nursing team and urologist. Prescriptions: No Action celecoxib 200 mg capsule PO atorvastatin 40 mg tablet 40 mg PO DAILY amlodipine 5 mg tablet 5 mg PO DAILY pantoprazole 40 mg tablet,delayed release (DR/EC) 40 mg PO DAILY oxycodone-acetaminophen [Percocet] 5-325 mg tablet 1 tab PO TID PRN (Reason: pain) Qty: 14 0RF ondansetron 4 mg tablet,disintegrating 4 mg PO Q8H PRN (Reason: nausea and vomiting) Qty: 14 0RF Follow Up/Referrals: William Stephens MD [Primary Care Provider] - Stand Alone Forms: [facility] Info Instructions
--- NOTE | 2024-02-19 17:36 | CRLHL7_ITS ---
For Patients: As a result of the Century Cures Act, medical imaging exams and procedure reports are released immediately into your electronic medical record. You may view this report before your referring provider. If you have questions, please contact your health care provider. Indication: abdominal pain, declines CT. 8mm distal stone hx Technique: Upright and supine views of the abdomen/pelvis, 2 images Comparison: CT abdomen/pelvis on February 04, 2024 Findings/impression : No evidence of bowel obstruction or inflammation. No free air. There is an 8 millimeter calcification projecting over the right lower pelvis, which may represent the stone in the distal ureter seen on prior CT examination. Additionally, there are several calcifications projecting over the pelvis to include a calcified peritoneal loose body, multiple pelvic phleboliths, and prostate calcifications as seen on prior CT examination. The visualized thorax is unremarkable. No acute osseous abnormality. Dictated by Eyal Rosas MD @ 02/19/2024 6:12:29 PM (Electronically Signed)
[2024-02-19 17:41] LABS: Appearance Urine Clear (Clear); Bilirubin Urine Negative (Negative); Blood Urine 2+ (Negative); Color Urine Yellow (Yellow); Glucose Urine Negative (Negative); Ketones Urine Negative (Negative); Leukocyte Esterase Urine Negative (Negative); Nitrite Urine Negative (Negative); Protein Urine Negative (Negative); Urobilinogen Urine 0.2 (0.2-1.0)
[2024-02-19 17:47] LABS: Basophils Percent Auto 0.8 % (0.0-3.0); Eosinophils Percent Auto 1.3 % (0.0-7.0); Hematocrit 47.5 % (37.0-53.0); Hemoglobin* 15.6 gm/dL (13.5-17.5); Immature Granulocytes Pct Auto 0.2 %; Lymphocytes Percent Auto 13.4 % (20-44); Mean Corpuscular HGB Conc 33 gm/dL (32-36); Mean Corpuscular Hemoglobin 31 pg (26-34); Mean Corpuscular Volume 93 fL (80-100); Monocytes Percent Auto 8.1 % (0.0-11.0); Neutrophils Percent Auto 76.2 % (42.0-72.0); Platelet Count* 303 K/uL (140-440); RDW Coefficient of Variation % 12.4 % (11.5-15.5); White Blood Count* 13.78 K/uL (4.50-11.00)
[2024-02-19 17:48] LABS: RBC Urine 25-50 (0-2); WBC Urine 0-2 (0-5)
[2024-02-19 17:49] LABS: Slide Review Reflex No
[2024-02-19 18:00] LABS: Albumin* 4.7 g/dL (3.3-5.0); Chloride* 104 mmol/L (96-114)
[2024-02-19] MEDS: KETOROLAC 15 MG/ML inj IVP (18:00)
[2024-02-19] MEDS: ONDANSETRON 2 MG/ML inj 4 MG IVP (18:00)
[2024-02-19] MEDS: PANTOPRAZOLE SODIUM 40 MG INJ IVP (18:00)
[2024-02-19] MEDS: 0.9 % SODIUM CHLORIDE 1000 ml 1,000 ML IV (18:00)
[2024-02-19 18:01] LABS: Potassium* 4.1 mmol/L (3.6-5.1); Sodium* 140 mmol/L (135-149)
[2024-02-19 18:03] LABS: Creatinine* 1.6 mg/dL (0.5-1.5); Est. Creatinine Clearance* 48.23; Estimated Glomerular Filt Rate 46 ml/min
[2024-02-19 18:04] LABS: Alanine Aminotransferase* 28 U/L (4-50); Alkaline Phosphatase* 66 U/L (40-150); Anion Gap 5 mEq/L (7-15); Aspartate Amino Transferase* 34 U/L (12-35); Bilirubin Total* 0.7 mg/dL (0.1-1.5); Blood Urea Nitrogen* 14 mg/dL (7-30); Calcium* 9.6 mg/dL (8.4-10.6); Carbon Dioxide* 31 mmol/L (20-32); Glucose* 121 mg/dL (60-115); Lipase* 46 U/L (23-300); Total Protein* 7.9 g/dL (6.0-8.3)
[2024-02-19 18:06] LABS: C Reactive Protein* 0.5 mg/dL (0.5-1.0)
== END 2024-02-19 19:46 | disposition left against medical advice (07) ==
PROVIDERS: Emergency Provider Family Medicine; PCP Family Medicine
DX: N20.1 Calculus of ureter (principal); N13.9 Obstructive and reflux uropathy, unspecified; N17.9 Acute kidney failure, unspecified
CPT/HCPCS: 36415; 74019; 80053; 81001; 81003; 83690; 85025; 86140; 96374; 96375; 99284; J1885; J2405; J2470; J7030